=== PATIENT | female | born 1995 | race Caucasian/White ===

== ENCOUNTER 2017-02-12 19:36 | Emergency (ER) | payer BC ==
[~2017-02-12] VITALS: Ht 172.7 cm; Wt 90.7 kg
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
== END 2017-02-12 22:26 | disposition home or self-care (01) ==
LOC: SED 19:36
DX: S60.211A Contusion of right wrist, initial encounter (principal); S60.416A Abrasion of right little finger, initial encounter; R03.0 Elevated blood-pressure reading, without diagnosis of hypertension; Z23 Encounter for immunization; Z88.0 Allergy status to penicillin; W22.09XA Striking against other stationary object, initial encounter; Y92.89 Other specified places as the place of occurrence of the external cause
CPT/HCPCS: 29280; 73110; 73130; 90471; 90715; 99283